=== PATIENT | male | born 2000 | race Caucasian/White ===

== ENCOUNTER 2024-09-19 02:21 | Emergency (ER) | payer SELFPAY ==
--- NOTE | 2024-09-19 02:33 | ERN ---
ED Note History of Present Illness Stated Complaint: ABDOMINAL PAIN Chief Complaint: Abdominal Pain Time Seen by MD: 02:25 Dictation: This is a 23-year-old male who came in to the emergency room with severe excruciating abdominal pain mostly in the epigastric area and lower part of the chest. He stated that this afternoon he ate lasagna and he has lactose intolerance and felt abdominal discomfort. It settle down after 2 or 3 hours and they went for dinner and after the dinner the pain was excruciating. He also vomited. No hematemesis or melena no fever chills or rigors most of the pain he is pointing to is in the epigastric area No diarrhea the friend reported that he had smoked marijuana earlier in the day. His vomitings were relentless and hence they came into the ER for further evaluation Temperature 98.1 pulse 79 respirations 14 blood pressure 128/49 with a pulse oximetry of 100% on room air Allergies: Coded Allergies: No Known Drug Allergies (Unverified Allergy, Unknown, 09/19/24) Home Meds Active Scripts Ondansetron (Ondansetron Odt) 4 Mg Tab.rapdis, 4 MG PO Q6HPRN PRN for nausea, #16 TAB 0 Refills Prov:MELVIN CARRERA MD 09/19/24 Past Medical History RN Note Reviewed/Agreed w/PFSH: Yes Review of System Dictation Constitutional: Negative for fever,chills, and weight loss Eyes: Negative for injury, pain,redness, and discharge ENT: Negative for injury,pain or swelling Cardiovascular: Negative for chest pain, palpitations, and edema Respiratory: Negative for shortness of breath, cough, and wheezing, Abdomen/GI: Positive for epigastric abdominal pain, nausea, vomiting, no diarrhea, and does have a history of constipation Back: Negative for injury and pain : Negative for injury, bleeding and discharge MS/Extremity: Negative for injury and deformity Skin: Negative for rash, and discoloration Neuro: Negative for headache, weakness, numbness, tingling, and seizure Psych: Negative for suicide ideation, homicidal ideation, and hallucinations Initial Vital Sign VS Vital Signs Date Time Temp Pulse Resp B/P (MAP) Pulse Ox O2 Delivery O2 Flow Rate FiO2 09/19/24 03:04 98.1 79 14 108/49 100 Room Air* 0 21 Physical Exam Dictation General: awake, alert, NAD looks very uncomfortable Head/Face: Normocephalic, atraumatic Eyes: PERRL, EOMI, vision at baseline ENT: oral cavity clear, TMs clear, no signs of infection Neck: Trachea midline, supple, no nuchal rigidity Cardiovascular: RRR, normal S1/S2, No MRGs, no JVD Respiratory: CTAB, no respiratory distress, No rales or wheezes Abdomen: Soft, mild epigastric tenderness non-distended, normal bowel sounds, no guarding or rebound. Skin: Warm, dry, normal turgor, no rash MS/Extremity: Pulses equal, no cyanosis, neurovascular intact, FROM Neuro: COAx4, GCS 15, strength 5/5, CN 2-12 intact, normal cerebellar exam, normal gait, Psych: Normal behavior, mood, and affect normal Extremities-trace edema without any palpable cords, Homans sign is negative Results (Laboratory/Radiology) Laboratory/Radiology Laboratory Tests Test 09/19/24 02:52 White Blood Count 18.5 K/uL (4.8-10.8) H Red Blood Count 5.27 MIL/uL (4.50-6.20) Hemoglobin 15.5 g/dL (14.0-18.0) Hematocrit 45.8 % (42-54) Mean Corpuscular Volume 86.9 fL (80-100) Mean Corpuscular Hemoglobin 29.4 pg (27.0-33.0) Mean Corpuscular Hemoglobin Concent 33.8 g/dL (32.0-36.0) Red Cell Distribution Width 12.9 % (11.0-15.5) Platelet Count 275 K/uL (130-400) Mean Platelet Volume 10.2 fL (7.5-10.5) Immature Granulocyte % (Auto) 0.5 % (0-1) Neutrophils (%) (Auto) 84.5 % (40.0-77.0) H Lymphocytes (%) (Auto) 11.3 % (21.0-51.0) L Monocytes (%) (Auto) 3.3 % (3.0-13.0) Eosinophils (%) (Auto) 0.1 % (0.0-8.0) Basophils (%) (Auto) 0.3 % (0.0-5.0) Neutrophils # (Auto) 15.7 K/uL (1.8-7.7) H Lymphocytes # (Auto) 2.1 K/uL (1.0-4.8) Monocytes # (Auto) 0.6 K/uL (0.1-1.0) Eosinophils # (Auto) 0.01 K/uL (0.00-0.70) Basophils # (Auto) 0.06 K/uL (0.00-0.20) Absolute Immature Granulocyte (auto 0.09 K/uL (0-1) Nucleated Red Blood Cells 0.0 % (0.0-0.19) Sodium Level 135 mmol/L (136-145) L Potassium Level 3.2 mmol/L (3.5-5.1) L Chloride Level 96 mmol/L (101-111) L Carbon Dioxide Level 25 mmol/L (21-32) Blood Urea Nitrogen 15 mg/dL (7-18) Creatinine 1.2 mg/dL (0.5-1.3) Glomerular Filtration Rate Calc 88 mL/min (>90) Random Glucose 145 mg/dL (70-105) H Total Calcium 9.6 mg/dL (8.5-10.1) Lipase 14 U/L (16-77) L Labs Reviewed?: Yes CT Scan Comment: CT scan of the abdomen stat read reading showed no acute findings within the abdomen or pelvis. Normal appearing partially gas-filled appendix. ED Course ED Course Orders Procedure Category Date Status Time Cbc With Differential LAB 09/19/24 Complete 02:27 Lactated Ringers PHA 09/19/24 In Process 1000ml (Lactated 02:30 Ketorolac PHA 09/19/24 Complete Tromethamine 15mg/Ml 02:30 Ondansetron 4mg Inj PHA 09/19/24 Complete (Zofran 4mg Inj) 02:30 Pantoprazole 40mg Inj PHA 09/19/24 Complete (Protonix 40mg Inj 02:30 Ct Abdomen/Pelvis W/O CT 09/19/24 Taken Contrast 02:27 Chest 1vw RAD 09/19/24 Taken 02:27 Lipase LAB 09/19/24 Complete 02:27 Basic Metabolic Panel LAB 09/19/24 Complete 02:27 Urinalysis Profile LAB 09/19/24 Logged 02:30 Drug Screen Urine LAB 09/19/24 Logged 02:30 Ketorolac PHA 09/19/24 Complete Tromethamine 15mg/Ml 02:40 Morphine 2mg Syg PHA 09/19/24 Complete (Morphine 2mg Syg) 04:00 Lidocaine Hcl 2% PHA 09/19/24 Complete Viscous (Lidocaine Hcl 04:00 Mag/Alum/Simeth 30ml PHA 09/19/24 Complete (Maalox Plus 30ml) 04:00 Dicyclomine Hcl PHA 09/19/24 Complete (Bentyl 10mg/5ml 04:00 Prochlorperazine PHA 09/19/24 Complete 10mg/2ml Inj 04:30 0.9%Nacl 1000ml (Ns PHA 09/19/24 Complete 1000ml) 06:00 0.9% Nacl 500ml PHA 09/19/24 In Process Iv.Soln (Ns 500ml 06:00 Potassium Chloride PHA 09/19/24 In Process 20meq/100ml (Potassiu 06:00 Ondansetron 4mg Inj PHA 09/19/24 Complete (Zofran 4mg Inj) 07:00 Current Medications Medications (Trade) Dose Ordered Sig/Jacinto Route PRN Reason Start Time Stop Time Status Last Admin Dose Admin Al Hydroxide/Mg Hydroxide (MAALox PLUS 30ML) 30 ml ONCE ONCE PO 09/19/24 04:00 09/19/24 04:01 DC Dicyclomine HCl (Bentyl 10mg/5ml Syrup) 10 mg ONCE ONCE PO 09/19/24 04:00 09/19/24 04:01 DC Ketorolac Tromethamine (toRADol) 15 mg ONCE ONCE IV 09/19/24 02:30 09/19/24 02:55 DC 09/19/24 02:58 Ketorolac Tromethamine (toRADol) 15 mg STK-MED ONCE .ROUTE 09/19/24 02:40 09/19/24 02:40 DC Lactated Ringer's 1,000 ml @ 125 mls/hr ONCE ONCE IV 09/19/24 02:30 09/19/24 10:29 09/19/24 02:59 Lidocaine HCl (Lidocaine HCl 2% Viscous) 10 ml ONCE ONCE PO 09/19/24 04:00 09/19/24 04:01 DC Morphine Sulfate (morPHINE 2MG SYG) 2 mg ONCE ONCE IVP 09/19/24 04:00 09/19/24 04:01 DC 09/19/24 04:18 Ondansetron HCl (zoFRAN 4MG INJ) 4 mg ONCE ONCE IVP 09/19/24 02:30 09/19/24 02:55 DC 09/19/24 02:58 Ondansetron HCl (zoFRAN 4MG INJ) 4 mg ONCE ONCE IVP 09/19/24 07:00 09/19/24 07:11 DC Pantoprazole Sodium (PROTonix 40MG INJ) 40 mg ONCE ONCE IVP 09/19/24 02:30 09/19/24 02:55 DC 09/19/24 02:58 Potassium Chloride 200 ml @ 50 mls/hr ONCE ONCE IV 09/19/24 06:00 09/19/24 09:59 09/19/24 06:22 Prochlorperazine Edisylate (Compazine 10mg/ 2ml Inj) 5 mg ONCE ONCE IV 09/19/24 04:30 09/19/24 04:31 DC 09/19/24 04:51 Sodium Chloride 500 ml @ 125 mls/hr Q4H ONCE IV 09/19/24 06:00 09/19/24 09:59 09/19/24 06:22 Sodium Chloride 1,000 ml @ 0 mls/hr ONCE ONCE IV 09/19/24 06:00 09/19/24 06:01 DC Vital Signs Date Time Temp Pulse Resp B/P (MAP) Pulse Ox O2 Delivery O2 Flow Rate FiO2 09/19/24 06:49 110 16 109/66 96 Room Air* 0 21 09/19/24 05:12 72 14 110/51 100 Room Air* 0 21 09/19/24 03:04 98.1 79 14 108/49 100 Room Air* 0 21 We will perform diagnostic labs, advanced imaging and administer medications according to the patient's complaint. Once the results are available, will review and personally interpreted the labs to rule out any acute life- threatening emergency the trach require immediate intervention and treatment. I will then re-evaluate the patient after treatment and diagnostic exams have return to determine whether the patient requires any further testing, can safely be discharged home or need further admission to hospital for additional treatment and evaluation. Labs CBC shows a white count of 18.5 hemoglobin 15.5 platelets 275 BNP 7 showed a potassium of 3.2 BUN and creatinine are 15 and 1.2 lipase is 14 Chest x-ray no acute infiltrate. I updated the patient and friend on the negative CT scan findings. Continue hydration antiemetics and all the supportive care. Replete potassium 6:30 a.m. pain finally is better would like to eventually go home once the fluids are done 7:00 a.m. feeling better plan to discharge to follow up with his primary care Medical Decision Making [facility]DM [facility] differential--food poisoning, dyspepsia, gastritis, cannabis vomitings syndrome, appendicitis Rationale: Tests considered and ordered secondary to shared decision making include: Previous outside records reviewed: Old ER visits. Risk of complication and/or morbidity or mortality of patient management: None Medications-Per medication reconciliation Need for hospitalization: Patient does not meet criteria for hospitalization. Need for emergency major/minor surgery: No There are no social concerns with this patient. Prescription drug management Prescriptions will include symptomatic care Patient's prior external medical records from other ER visits were reviewed by me as indicated. Prior testing and results from previous visits were reviewed. Prior tests were taken into account with medical decision making and resource utilization, independent historian/historians were used to obtain complete medical history. I independently interpreted the test that were performed, results were reviewed by me and considered findings on radiology if ordered. Medical management and examination interpretation discussions were had by me with other qualified healthcare professionals as indicated for the patient's care. Problem List Problem List: (1) Abdominal pain (2) Nausea & vomiting DX & DISP Disposition: Discharge Departure Impression: Primary Impression: Abdominal pain Additional Impressions: Nausea & vomiting, Food poisoning Condition: Stable Scripts Ondansetron (Ondansetron Odt) 4 Mg Tab.rapdis 4 MG PO Q6HPRN PRN for nausea, #16 TAB 0 Refills Prov: MELVIN CARRERA MD 09/19/24 Additional Instructions: Patient and the caregiver have been informed of all the diagnostic tests and the imaging conducted during the today's visit to the emergency room and has verbalized understanding of the results I have personally reviewed and interpreted all diagnostic exams performed here in the ER today as well as the vital signs documented by the nursing staff. The patient is now being discharged to home and should follow up with the primary care physician or the specialist as directed by the ER staff. Follow-up with primary care provider in 1 to 2 days. Take medications as directed here in the emergency room. Okay to continue home medications unless otherwise discussed during your visit in the emergency room today. Return to your nearest emergency room if symptoms worsen or if there is no improvement. Call 911 if you need immediate assistance. Take Tylenol or Motrin [id number] as needed and if no contraindications are present. Increase oral hydration. A wound culture or urine culture was ordered here in the emerge ncy room department please follow-up with primary care provider and advise them to get repeat ports from our facility. If you had any Colin wrap/splints that were applied here, please do not remove them until you see your primary care or specialty. MELVIN CARRERA MD Sep 19, 2024 02:33
[2024-09-19] MEDS: ketOROlac 15MG/ML VIAL (15MG/ML) IV ONE (02:58)
[2024-09-19] MEDS: PANTOPrazole 40 MG/VIAL IVP ONE (02:58)
[2024-09-19] MEDS: ondanSETRON 4MG INJ IVP ONE ×2 (02:58→07:22)
[2024-09-19] MEDS: ketOROlac 15MG/ML VIAL (15MG/ML) ONE (02:58)
[2024-09-19] MEDS: LACTATED RINGERS 1000ML 1,000 ML IV ONE (02:59)
[2024-09-19 03:06] LABS: BASOPHILS # (AUTO) 0.06 K/uL (0.00-0.20); BASOPHILS % (AUTO) 0.3 % (0.0-5.0); EOSINOPHILS # (AUTO) 0.01 K/uL (0.00-0.70); EOSINOPHILS % (AUTO) 0.1 % (0.0-8.0); HEMATOCRIT 45.8 % (42-54); IMMATURE GRANULOCYTE ABSOLUTE 0.09 K/uL (0-1); LYMPHOCYTES # (AUTO) 2.1 K/uL (1.0-4.8); LYMPHOCYTES % (AUTO) 11.3 % (21.0-51.0); MEAN CORPUSCULAR HEMOGLOBIN 29.4 pg (27.0-33.0); MEAN CORPUSCULAR HGB CONC 33.8 g/dL (32.0-36.0); MEAN CORPUSCULAR VOLUME 86.9 fL (80-100); MONOCYTES # (AUTO) 0.6 K/uL (0.1-1.0); MONOCYTES % (AUTO) 3.3 % (3.0-13.0); NEUTROPHILS # (AUTO) 15.7 K/uL (1.8-7.7); NEUTROPHILS % (AUTO) 84.5 % (40.0-77.0); PLATELET COUNT (AUTO) 275 K/uL (130-400); RED BLOOD CELL COUNT(AUTO) 5.27 MIL/uL (4.50-6.20); RED CELL DISTRIBUTION WIDTH 12.9 % (11.0-15.5); WHITE BLOOD COUNT (AUTO) 18.5 K/uL (4.8-10.8)
[2024-09-19 03:12] LABS: CREATININE 1.2 mg/dL (0.5-1.3); POTASSIUM 3.2 mmol/L (3.5-5.1)
[2024-09-19] MEDS: DICYCLOMINE HCL 10 MG/5 ML ML PO ONE (04:17)
[2024-09-19] MEDS: LIDOCAINE HCL 2% VISCOUS 15 ML UDCUP PO ONE (04:17)
[2024-09-19] MEDS: MAG/ALUM/SIMETH 30 ML UDCUP PO ONE (04:18)
[2024-09-19] MEDS: morPHINE 2 MG SYG IVP ONE (04:18)
[2024-09-19] MEDS: PROCHLORPERAZINE 10MG/2ML INJ IV ONE (04:51)
[2024-09-19] MEDS: 0.9%NACL 1000ML 1,000 ML IV ONE (05:55)
[2024-09-19] MEDS: 0.9% NACL 500ML IV.SOLN 500 ML IV ONE (06:22)
[2024-09-19] MEDS: POTASSIUM CHLORIDE 20 MEQ/100 ML IV ONE (06:22)
[2024-09-19] MEDS ORDERED: ONDA-243 PO (07:01)
[2024-09-19 07:51] VITALS: BP 120/57; PULSE 68; RESP 14; TEMP 98; O2SAT 100
--- NOTE | 2024-09-19 09:03 | HMCIMG ---
Exam Type: CT ABDOMEN/PELVIS W/O CONTRAST Clinical Information: ABD PAIN Comparison: None CT Dose Index (CTDI): 10.20 mGy Dose Length Product (DLP): 530.00 total mGy-cm PROTOCOL: Routine noncontrast helical scanning of the abdomen and pelvis was performed at 5mm collimation. Findings: Nonobstructive bilateral nephrolithiasis seen. The lung bases are clear. The stomach is unremarkable. It shows no wall thickening. No gross ulceration is seen. It is not overly distended. There are no surrounding inflammatory changes. No wall lesions are identified to suggest cancer. The spleen is unremarkable. It is not enlarged. The pancreas shows normal anatomy. It is not fatty replaced. It shows no lesions. The pancreatic duct is not dilated. The gallbladder is unremarkable. It shows no cholelithiasis. The gallbladder wall is normal in thickness. There is no pericholecystic fluid. The is no acute or chronic inflammation noted. The adrenal glands are unremarkable. There is no enlargement. No lesions are noted. The liver is unremarkable. It shows no focal masses. The appendix is unremarkable. It shows no evidence of inflammation. No appendicolith is seen. The small bowel is unremarkable. There is no evidence of dilatation to suggest obstruction. No evidence of adynamic ileus is seen. There is no small bowel wall thickening to suggest enteritis. The colon is unremarkable. The urinary bladder is unremarkable. There is no wall thickening to suggest tumor or inflammation. There are no intraluminal calculi. There are no diverticula. There is no evidence of chronic bladder outlet obstruction. There is no evidence of urinary bladder distention to suggest urinary retention. The other pelvic structures are unremarkable. The bony and vascular structures are unremarkable for the patient's age. IMPRESSION: Nonobstructive bilateral nephrolithiasis. No acute pathology. This study was performed using dose reduction techniques to include automated exposure control and/or adjustment of the mA and/or kV according to patient size.
--- NOTE | 2024-09-19 10:33 | HMCIMG ---
Exam Type: CHEST 1VW Clinical Information: upper abdomen and lower chest pain Comparison: None Findings: The lungs are clear of infiltrates. The heart is normal in size. The bony and soft tissue structures of the chest are unremarkable. Impression: Clear lungs.
== END 2024-09-19 08:03 | disposition home or self-care (01) ==
LOC: EDH 02:21
DX: A05.9 Bacterial foodborne intoxication, unspecified (principal); N20.0 Calculus of kidney; Z79.899 Other long term (current) drug therapy
CPT/HCPCS: 99285; 74176; 96374; 96375; 71045; 80048; 83690; 85025; 36415; 96376; J1885; J7040; J2270; J0780; J2405 ×2; J3480; J2470